=== PATIENT | female | born 1980 | race Two or more races ===

== ENCOUNTER → 2023-04-25 | Emergency (ER) | payer BC ==
[~2023-04-25] VITALS: Ht 167.6 cm; Wt 68.0 kg
[2023-04-25 22:15] LABS: HEMATOCRIT 38.4 % (36.0-45.00); HEMOGLOBIN 13.3 g/dL (12.0-15.00); MEAN CORPUSCULAR HEMOGLOBIN 31.8 pg (27.00-32.0); MEAN CORPUSCULAR HGB CONC 34.6 g/dl (32.0-36.0); PLATELET COUNT 384 K/uL (150-450); RED BLOOD COUNT 4.18 M/uL (4.00-6.00); RED CELL DISTRIBUTION WIDTH 13.2 % (11.5-14.5)
[2023-04-25 22:38] LABS: CALCIUM 9.9 mg/dL (8.5-10.1); CREATININE SERUM 0.97 mg/dL (0.55-1.02); GFR 63.29; POTASSIUM 3.08 mEq/L (3.5-5.1)
== END | disposition home or self-care (01) ==
LOC: ER 21:12
PROVIDERS: General Practice
DX: F41.0 Panic disorder [episodic paroxysmal anxiety] (principal)